=== PATIENT | female | born 1960 | race American Indian/Alaskan Native ===

== ENCOUNTER 2017-01-06 05:58 | Day surgery (SDC) | payer MEDICAID, OTHER ==
[2017-01-06] MEDS ORDERED: Sodium Chloride 0.9% 10 ML Syringe FLUSH PRN (06:00)
[2017-01-06] MEDS ORDERED: Dextrose 5%-0.45% NaCl 1,000 ML IV SCH (06:00)
[2017-01-06 06:11] VITALS: BP 140/78
[2017-01-06] MEDS ORDERED: fentaNYL 100 MCG/2 ML SDV ONE (06:23)
[2017-01-06] MEDS ORDERED: Midazolam 1 MG/ML 2 ML SDV ONE (06:23)
[2017-01-06] MEDS ORDERED: fentaNYL 100 MCG/2 ML SDV IV ONE (13:05)
[2017-01-06] MEDS ORDERED: Midazolam 1 MG/ML 2 ML SDV IV ONE (13:05)
== END 2017-01-06 07:17 | disposition home or self-care (01) ==
LOC: DL.ENDO 05:58
PROVIDERS: ATTEND Internal Medicine Gastroenterology
DX: R10.11 Right upper quadrant pain (principal); I10 Essential (primary) hypertension; E11.9 Type 2 diabetes mellitus without complications; E66.09 Other obesity due to excess calories; M06.9 Rheumatoid arthritis, unspecified; F32.9 Major depressive disorder, single episode, unspecified; Z87.19 Personal history of other diseases of the digestive system; Z98.51 Tubal ligation status; Z98.890 Other specified postprocedural states; Z79.82 Long term (current) use of aspirin; Z79.899 Other long term (current) drug therapy; Z53.9 Procedure and treatment not carried out, unspecified reason
CPT/HCPCS: J2250; J3010; J7042

== ENCOUNTER 2023-08-02 14:31 | Emergency (ER) | payer MEDICAID, OTHER ==
[2023-08-02] MEDS ORDERED: Sodium Chloride 0.9% 10 ML Syringe FLUSH PRN (14:32)
[2023-08-02 14:56] VITALS: BP 147/106; PULSE 106
[2023-08-02 15:04] LABS: BASOPHILS PERCENT AUTO 0.3 % (0.0-1.0); EOSINOPHILS PERCENT AUTO 6.3 % (1.0-3.0); HEMATOCRIT 34.8 % (37.0-47.0); HEMOGLOBIN 11.4 g/dL (12.0-16.0); LYMPHOCYTES PERCENT AUTO 31.9 % (20.5-50.1); MEAN CORPUSCULAR HEMOGLOBIN 32.2 pg (27.0-34.0); MEAN CORPUSCULAR HGB CONC 32.8 g/dL (33.0-35.0); MEAN CORPUSCULAR VOLUME 98.3 fL (80-100); MONOCYTES PERCENT AUTO 12.8 % (2-8); NEUTROPHILS PERCENT AUTO 48.7 % (42.2-75.2); PLATELET COUNT,PLT 141 10^3/uL (150-450); RED BLOOD CELL COUNT 3.54 10^6/uL (4.2-5.4); WHITE BLOOD CELL COUNT,WBC 6.6 10^3/uL (5.0-10.0)
[2023-08-02 15:33] LABS: INR 1.6 (0.9-1.2); LACTIC ACID 2.9 mmol/L (0.4-2.0); PROTHROMBIN TIME 15.9 SEC (9.0-12.0); PTT,PARTIAL THROMBOPLSTIN TIME 28.7 SEC (22.0-34.0)
[2023-08-02 15:39] LABS: ANION GAP 14.8 mEq/L (7-13); BUN/CREATININE RATIO 5.6 (No establ ref range); C-REACTIVE PROTEIN 1.5 ng/dL (<=0.50); CALCIUM 7.4 mg/dL (8.5-10.1); CREATININE 0.72 mg/dL (0.55-1.02); EST CRCL DRUG DOSING (CG) 83.82 mL/min; MAGNESIUM 1.5 mg/dL (1.8-2.4); PHOSPHORUS 2.6 mg/dL (2.6-4.7); POTASSIUM,K 2.8 mmol/L (3.5-5.1); PROTEIN TOTAL,TP 7.5 g/dL (6.4-8.2)
[2023-08-02 15:49] LABS: A/G RATIO 0.36
== END 2023-08-02 15:35 | disposition left against medical advice (07) ==
LOC: DL.ED 14:31
DX: F10.920 Alcohol use, unspecified with intoxication, uncomplicated (principal); R18.8 Other ascites; I10 Essential (primary) hypertension; E11.9 Type 2 diabetes mellitus without complications; M06.9 Rheumatoid arthritis, unspecified; E66.9 Obesity, unspecified; Z68.30 Body mass index [BMI] 30.0-30.9, adult; Z91.040 Latex allergy status; Z79.82 Long term (current) use of aspirin; Z79.899 Other long term (current) drug therapy
CPT/HCPCS: 36415; 71045; 80053; 80143; 80179; 80307; 82140; 82150; 83605; 83690; 83735; 83880; 84100; 84484; 85025; 85610; 85730; 86140; 93005; 93010; 99284; 99285; J3490